=== PATIENT | female | born 1960 | race Caucasian/White ===

== ENCOUNTER 2021-04-08 10:40 | Day surgery (SDC) | payer BC ==
[2021-04-05 14:14] LABS: Absolute Lymphocytes (CBC) 2.1 K/uL (0.7-4.9); Basophils % 0.7 % (0-1.3); Hematocrit 44.6 % (36.0-45.0); Lymphocytes % 29.9 % (15.3-44.8); MPV 8.8 fL (7.6-11.3); RBC Red Blood Cell Count 5.06 M/uL (3.86-4.86)
--- NOTE | 2021-04-05 14:14 | RAD REPORT ---
EXAM DESCRIPTION: Dianelys Galicia (2 Views)04/05/2021 2:03 pm CLINICAL HISTORY: Preop for genitourinary surgery COMPARISON: None FINDINGS: The lungs appear clear of acute infiltrate. The heart is normal size. Wiring overlies the right posterior chest and neck IMPRESSION: No acute abnormalities displayed
[2021-04-05 14:26] LABS: Protime INR 0.84
[2021-04-05 14:37] LABS: Potassium 3.8 mmol/L (3.5-5.1)
--- NOTE | 2021-04-05 18:21 | EKG ---
Test Date: 2021-04-05 Test Time: 13:04:54 Equipment Associate: DANELLE MEASUREMENT RESULTS: Intervals: Rate: 57 CA: 116 QRSD: 94 QT: 430 QTc: 418 Davidson: P: 40 CA: 116 QRS: 22 T: 100 INTERPRETIVE STATEMENTS: Sinus bradycardia Low voltage QRS T wave abnormality, consider anterior ischemia Abnormal ECG No previous ECG available for comparison Electronically Signed On 04-05-21 18:20:43 CDT by Greg Mccloud
[2021-04-08] MEDS ORDERED: CEFAZOLIN/SWI 1gm 1 GM/10 ML SYR ONE (11:11)
[2021-04-08] MEDS ORDERED: Ringers Lactate 1,000 ML IV ONE (11:11)
[2021-04-08] MEDS ORDERED: PHENAZOPYRIDINE 100MG TAB PO ONE ×2 (13:10→15:14)
[2021-04-08] MEDS ORDERED: CODEINE 30MG/APAP 300MG TAB PO PRN (13:10)
[2021-04-08] MEDS ORDERED: MIDAZOLAM HCL 2 MG/2 ML INJ ONE (13:14)
[2021-04-08] MEDS ORDERED: propofoL 200 MG/20 ML VIAL IV ONE (13:14)
[2021-04-08] MEDS ORDERED: FENTANYL CITR 100 MCG/2 ML ONE (13:14)
[2021-04-08] MEDS ORDERED: LIDOCAINE 1% MPF 5 ML VIAL ONE (13:14)
[2021-04-08] MEDS ORDERED: dexAMETHasone 10 MG/ML VIAL ONE (13:47)
[2021-04-08] MEDS ORDERED: KETOROLAC 30 MG/ML INJ ONE (13:47)
[2021-04-08] MEDS ORDERED: ONDANSETRON 4 MG/2 ML VIAL ONE (13:49)
[2021-04-08 15:00] VITALS: BP 138/69; TEMP 98; O2SAT 97
[2021-04-08] MEDS ORDERED: CODEINE 30MG/APAP 300MG TAB ONE (15:02)
--- NOTE | 2021-04-08 18:46 | RAD REPORT ---
EXAM DESCRIPTION: RAD - Urethrocystogrphy Retrograde - 04/08/2021 2:01 pm CLINICAL HISTORY: STENT PLCMNT COMPARISON: Chest Pa And Lat (2 Views) dated 04/05/2021 FINDINGS: One image is submitted showing 2 right-sided ureteral stents in place. A stimulator batter y pack overlies the right lower quadrant. There is contrast within the right renal collecting system. Fluoro time: 21 seconds IMPRESSION: Single intraoperative fluoroscopic image showing 2 ureteral stents traversing the right ureter.
--- NOTE | 2021-04-09 00:29 | OP ---
Date of Procedure: 04/08/2021 Surgeon: HAROON LEONARDO Preoperative Diagnoses: 1.Right flank pain. 2.Right ureterolithiasis. 3.Right hydronephrosis. Postoperative Diagnoses: 1.Right flank pain. 2.Right ureterolithiasis. 3.Right hydronephrosis. 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 Indication For Procedure: Ms. Hurtado presented to the [facility] with a persistent obstructing r ight ureteral calculus that was suggested to be 6 mm in the proximal right ureter. She had a CT scan done at [facility], and I do not have that detailed report available for my r odalys, but I reviewed the CD of the images today prior to the surgery and identified and confirmed th e presence of a rather oblong calculus within the region of the UPJ on the right side. She thus was consented for right ureteral stent placement given the prolonged nature of her obstruction about 6 we eks' time. Procedure In Detail: The patient was consented in the preoperative holding area before being transfe rred to the operative suite where general anesthesia was induced. She was given Ancef 1 g IV antimic robial prophylaxis, and pneumo boots were provided for DVT prophylaxis. She was placed in the lithot neto position, padded, and secured to the table appropriately. Her genitalia were prepped using Hibic lens, and she was draped in standard fashion. The case was begun using a 22-Swazi rigid cystoscope to traverse the urethra and into the bladder. The bladder was surveyed in its entirety, and no obvio us papillary mucosal lesions, foreign bodies or stones were noted throughout. The trigone was orthot opic, and there was evidence of 2 separate ureteral orifices within the right component of the trigon e with 1 within the trigone proper and another lateral to the trigone. As such, I cannulated the lat eral orifice first using the tip of a 5-Swazi ureteral access catheter and performed a retrograde py elogram. Right retrograde pyelography: Using a 70:30 mixture of Omnipaque and saline, contrast was injected via the lumen of the 5-Swazi ur eteral access catheter and did propagate up what appeared to be a moderately dilated ureter into a mo derately hydronephrotic renal pelvis with mild caliectasis. The component of the pyelogram observed was relatively low in position, almost suggestive of a pelvic kidney, but given the 2 potential urete ral orifices seen, I suspected this may have been a duplicated system. As a result, I passed a Senso r wire into the pelvis of the contrast-injected segment, and over that, I passed a 6-Swazi x 24 cm d ouble-J right ureteral stent with ease with a coil observed fluoroscopically within the pelvis of the lower pole moiety. I then identified the more medially placed ureteral orifice within the trigone a nd cannulated it using the tip of the Sensor wire and the 5-Swazi ureteral access catheter. I again performed a retrograde pyelogram on this ureteral orifice. The right medial trigone placed ureteral orifice retrograde pyelography study: Again, using a 70:30 mixture of Omnipaque and saline, contrast was injected via the 5-Swazi ureteral access catheter and this time did propagate up a relatively nondilated collecting system with a comp letely separate and duplicated ureter that went into an upper pole moiety of the right kidney. While no significant caliectasis was noted without any significant pelvic development to this component of the kidney, there was evidence of significant pyelo venous efflux of contrast almost suggestive of a fistula between the upper pole moiety of her renal calyx at the infundibulum into the IVC or via the renal vein directly. As a result, since I could not be certain which component of her duplicated sy stem on the right was obstructed, the lower pole moiety with obvious evidence of obstruction associat ed with hydronephrosis and caliectasis, but the upper pole moiety with suggestion of the potential fo r obstruction resulting in rupture of a calyx and venous fistula, I then went ahead and placed a 6-Fr ench by 26 cm double-J ureteral stent this time into the upper pole moiety of the duplicated collecti ng system on the right side. A coil was observed fluoroscopically within the upper pole and 1 cystos copically was formed within the bladder. I then decompressed her bladder of fluid and urine and paco diya the scope. The patient was taken out of the lithotomy position, awakened from general anesthesia , transferred to a stretcher and then transferred to the recovery room in good condition. Complications: None. Discharge Disposition: She should be rescheduled for definitive management via ureteroscopy and lase r lithotripsy within the coming weeks. It is not clear the etiology of this suspected fistula ehsanwee n her upper pole moiety calyx, infundibulum with the renal vein, but this will be investigated more a t that time if necessary. Likely, we will endeavor to arrange a CT scan without contrast to confirm whether the obstructing stone is indeed in the lower pole moiety or the upper pole moiety, because I would like to avoid performing pressurized ureteroscopy in the upper pole moiety if the fistulous con nection still exists. Regardless, we will leave that stent in place for at least 4 to 6 weeks to all ow the connection to seal if indeed it is an abnormally developed connection. MARIA L/LYDIA Voice ID: [id number] Report ID: [id number]
== END 2021-04-08 15:10 | disposition home or self-care (01) ==
LOC: OR 10:40
PROVIDERS: ATTEND Urology
PROC: 0T768DZ Dilation of Right Ureter with Intraluminal Device, Via Natural or Artificial Opening Endoscopic (ICD-10-PCS; principal; 2021-04-08 12:45)
DX: N20.0 Calculus of kidney (principal); N39.3 Stress incontinence (female) (male); Z20.822 Contact with and (suspected) exposure to COVID-19
CPT/HCPCS: 93005; 87088; 85025; 87086; 80048; 36415; 85610; 85730; 71046; 74450; 51610; 52332; U0003; J2704; J2250; J3010; J1100; J0690; J7120; J2405

== ENCOUNTER 2021-05-14 06:17 | Day surgery (SDC) | payer BC ==
[2021-05-10 15:16] LABS: Absolute Lymphocytes (CBC) 1.9 K/uL (0.7-4.9); Basophils % 0.8 % (0-1.3); Hematocrit 41.3 % (36.0-45.0); Lymphocytes % 26.7 % (15.3-44.8); MPV 8.1 fL (7.6-11.3); RBC Red Blood Cell Count 4.67 M/uL (3.86-4.86)
[2021-05-14] MEDS ORDERED: Ringers Lactate 1,000 ML IV ONE (06:48)
[2021-05-14] MEDS ORDERED: CELECOXIB 100 MG CAPSULE PO ONE (07:15)
[2021-05-14] MEDS ORDERED: ACETAMINOPHEN 500 MG TAB PO ONE (07:15)
[2021-05-14] MEDS ORDERED: dexAMETHasone 10 MG/ML VIAL ONE (07:34)
[2021-05-14] MEDS ORDERED: FENTANYL CITR 250 MCG/5 ML ONE (07:34)
[2021-05-14] MEDS ORDERED: MIDAZOLAM HCL 2 MG/2 ML INJ ONE (07:34)
[2021-05-14] MEDS ORDERED: KETOROLAC 30 MG/ML INJ ONE (07:34)
[2021-05-14] MEDS ORDERED: propofoL 200 MG/20 ML VIAL IV ONE (07:34)
[2021-05-14] MEDS ORDERED: ROCURONIUM 50 MG/5 ML VIAL IV ONE (07:35)
[2021-05-14] MEDS ORDERED: ONDANSETRON 4 MG/2 ML VIAL ONE (07:35)
[2021-05-14] MEDS ORDERED: LIDOCAINE 1% MPF 5 ML VIAL ONE (07:35)
[2021-05-14] MEDS ORDERED: ACETAMINOPHEN 500 MG TAB ONE (07:39)
[2021-05-14] MEDS ORDERED: CELECOXIB 100 MG CAPSULE ONE (07:39)
[2021-05-14] MEDS ORDERED: AMPICILLIN SODIUM 2 GM in NA CHLORIDE 0.9% 100 ML IVPB ONE (08:00)
[2021-05-14] MEDS ORDERED: Gentamicin Inj 180 MG in NA CHLORIDE 0.9% 100 ML IV ONE (08:00)
[2021-05-14] MEDS ORDERED: EPHEDRINE SULF 50 MG/ML VIAL ONE (08:38)
[2021-05-14] MEDS ORDERED: PHENAZOPYRIDINE 100MG TAB PO ONE ×2 (09:13→10:28)
[2021-05-14] MEDS ORDERED: TRAMADOL 37.5mg/APAP 325mg PER TAB PO ONE (09:14)
--- NOTE | 2021-05-14 09:38 | RAD REPORT ---
EXAM DESCRIPTION: RAD - Urography Retrograde - 05/14/2021 9:30 am CLINICAL HISTORY: ICD N 20.0 FINDINGS: Sixteen fluoroscopic spot images obtained. Fluoroscopy time 0.23 minutes Right ureter was cannulated and contrast administered. Examination was performed by Dr Arnett
[2021-05-14] MEDS ORDERED: HYDROMORPHONE HCL 1 MG/ML INJ ONE (09:46)
[2021-05-14] MEDS ORDERED: TRAMADOL HCL 50 MG TAB ONE (10:28)
[2021-05-14 11:12] VITALS: BP 105/57; TEMP 98.5; O2SAT 95
--- NOTE | 2021-05-14 17:31 | OP ---
Date of Procedure: 05/14/2021 Surgeon: HAROON LEONARDO Preoperative Diagnoses: 1.Right obstructive ureterolithiasis. 2.Right duplicated collecting system with stone involving the lower pole moiety. Postoperative Diagnoses: 1.Right obstructive ureterolithiasis. 2.Right duplicated collecting system with stone involving the lower pole moiety. Principle Procedures: 1.Cystoscopy. 2.Right retrograde pyelography of a dual collecting system on the right. 3.Right lower pole ureteroscopy with laser lithotripsy of 6 mm and 3 mm calculus. 4.Right stone basketing and extraction. 5.Right ureteral stent exchange. 6.Right upper pole moiety ureteral stent extraction. Indication For Procedure: Ms. Hurtado presents in followup today for definitive ureteroscopic managem ent of her stone obstructing the lower pole moiety of a duplex right renal collecting system. The st one obstructing was 6 mm. Procedure In Detail: The patient was consented in the preoperative holding area before being transfe rred to operative suite where general anesthesia was induced. She was placed in the lithotomy positi on, padded and secured to the table appropriately. Her genitalia were prepped using Hibiclens and sh e was draped in standard fashion. The case was begun using a 22-Mongolian rigid cystoscope to traverse the urethra and into the bladder with ease. The bladder was decompressed of urine and then refilled and the stents, 2 of them, were observed to emanate from the ureteral orifices laterally. The upper pole moiety ureteral stent within the trigone was grasped initially and delivered via the meatus. A Sensor wire was passed via the stent into the upper pole moiety where it coiled in the calyx of the u pper pole moiety. A dual-lumen catheter was placed over the wire and a retrograde pyelogram was perf ormed. 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 As a result, the dual-lumen ca theter was removed, and I turned my attention to the lower pole moiety. I again replaced the 22-Mongolian rigid cystoscope at this time, used an alligator grasper to deliver th e lower pole moiety stent via the meatus. A Sensor wire was again passed via this stent and did coil within the lower pole of the renal pelvis. Over that Sensor wire, a dual-lumen catheter was again p laced into the mid ureter and a retrograde pyelogram was performed. Right lower pole moiety retrograde pyelogram study: Using the similar 70:30 mixture of Omnipaque and saline, contrast was injected and did propagate via the second lumen of the dual-lumen catheter into the lower pole moiety ureter where the wire was obse rved coiled within the upper pole of the lower pole moiety. I then passed a Bentson guidewire alongs ayaan the indwelling safety wire as observed fluoroscopically via the second lumen of the dual-lumen ca theter. I then removed the dual-lumen catheter and attempted to pass the flexible ureteroscope over the Bentson guidewire, but it would not pass beyond the ureteral orifice. As a result, I employed a ureteral access sheath to navigate beyond the ureteral orifice up the lower pole moiety into the mid distal lower pole ureter. After this, I was then able to pass the flexible ureteroscope over the Kamron tson guidewire and into the lower pole moiety collecting system. I then surveyed each of the calices of the lower pole moiety collecting system and identified the previously observed 6 mm calculus that had been displaced from the UPJ of the lower pole moiety ureter into the renal pelvis. I observed a n additional approximately 2 or 3 mm calculus within the lower pole of the lower pole moiety ureter. I used a basket to grasp some of the stone fragments and attempted to deliver them from the ureter, but the stone fragment was too large and would not pass despite the presence of prior stenting. As a result, I cut the wire of the basket and passed along the indwelling basket wire, a 200 nm laser fib er and then utilized alternating laser settings of 0.8 joules and 8 hertz with 0.4 joules and 40 hert z and 0.8 joules and 15 hertz in order to dust the very hard stone into fragments either small enough to retrieve with the basket or to pass as they were the size of the laser fiber or smaller. Some of the stone fragments were indeed removed by extracting the basket along with ureteroscope and these w ere sent for chemical analysis. I then surveyed each of the calices of the collecting system again f or any additional stone fragments, and when none were noted, I then removed the ureteroscope. I then removed the ureteral access sheath along with extracting the ureteral scope surveying the ureter all the way out. With no additional stones noted, I then back-loaded the cystoscope over the indwelling safety wire and passed a 6-Mongolian by 26 cm double-J right lower pole moiety ureteral stent. A coil was observed fluoroscopically within the lower pole moiety renal pelvis and 1 cystoscopically was for med in the bladder. The patient's bladder was then surveyed in detail for any mucosal lesions, and w hen none were noted, the bladder was decompressed and the case was concluded. The patient was then t aken out of the lithotomy position, awakened from general anesthesia, transferred to a stretcher, and then transferred to the recovery room in good condition. Complications: None. Discharge Disposition: She should be scheduled to follow up in the Urology Clinic somewhere between the next 1-3 weeks for cystoscopy and right ureteral stent extraction. The stones today will be sent for chemical analysis and if she is a recurrent stone former, we will plan on metabolic stone formin g profile assessment to be performed about a month after the stent is extracted. MARIA L/LYDIA Voice ID: [id number] Report ID: [id number]
== END 2021-05-14 10:50 | disposition home or self-care (01) ==
LOC: OR 06:17
PROVIDERS: ATTEND Urology
PROC: 0TC68ZZ Extirpation of Matter from Right Ureter, Via Natural or Artificial Opening Endoscopic (ICD-10-PCS; 2021-05-14)
PROC: 0T768DZ Dilation of Right Ureter with Intraluminal Device, Via Natural or Artificial Opening Endoscopic (ICD-10-PCS; principal; 2021-05-14 07:30)
DX: N20.2 Calculus of kidney with calculus of ureter (principal); R10.9 Unspecified abdominal pain; N13.30 Unspecified hydronephrosis; Z20.822 Contact with and (suspected) exposure to COVID-19
CPT/HCPCS: 87088; 85025; 87086; 36415; 88300; 82360; 74420; 53899; 52332; U0003; J2704; J1580; J2250; J3010; J1100; J1170; J7120; J2405; J0290